=== PATIENT | female | born 1990 | race Caucasian/White ===

== ENCOUNTER 2019-01-01 04:00 | Inpatient (IN) ==
[2019-01-01] MEDS ORDERED: Famotidine 20 MG/2 ML VIAL IVP PRN (04:43)
[2019-01-01] MEDS ORDERED: Naloxone 0.4 MG/ML INJ IVP PRN (04:43)
[2019-01-01] MEDS ORDERED: Metoclopramide 10 MG/2 ML VIAL IVP PRN (04:43)
[2019-01-01] MEDS ORDERED: Ringers Solution, Lactated 1,000 ML IVC SCH (04:45)
[2019-01-01] MEDS ORDERED: *HR* Nalbuphine 10 MG/ML AMPUL IV PRN (04:52)
[2019-01-01 05:11] LABS: Basophils # 0.1 K/mcL (0.0-0.2); Basophils % 0.4 %; Eosinophils # 0.1 K/mcL (0.0-0.6); Hematocrit 37.7 % (35.3-44.9); Hemoglobin 13.5 g/dL (11.5-15.4); Immature Granulocytes % 0.9 % (0-4); Lymphocytes % 14.4 %; Mean Corpuscular HGB Conc 35.8 g/dL (31.6-35.5); Mean Corpuscular Hemoglobin 33.8 pg (28.0-33.3); Mean Corpuscular Volume 94.3 fL (83.0-100.0); Mean Platelet Volume 11.7 fL (9.4-12.4); Monocytes # 1.1 K/mcL (0.0-1.3); Monocytes % 8.1 %; Neutrophils # 10.5 K/mcL (1.6-8.9); Platelet Count 170 K/mcL (140-400); Red Cell Distribution Width 12.1 % (11.5-14.5); Segmented Neutrophils % 75.2 %; White Blood Count 13.9 K/mcL (4.3-11.1)
[2019-01-01 05:20] LABS: Amphetamine Screen,Urine Negative ng/mL (Cutoff=1000); Barbiturate Screen,Urine Negative ng/mL (Cutoff=200); Benzodiazepines Screen,Urine Negative ng/mL (Cutoff=200); Cannabinoid Screen,Urine Negative ng/mL (Cutoff = 50); Cocaine Screen,Urine Negative ng/mL (Cutoff= 300); Opiate Screen,Urine Negative ng/mL (Cutoff=300); Phencyclidine Screen,Urine Negative ng/mL (Cutoff=25)
[2019-01-01] MEDS ORDERED: miSOPROStoL 25 MCG TABLET VG SCH (06:00)
[2019-01-01] MEDS ORDERED: Ringers Solution, Lactated 1,000 ML ONE (10:24)
[2019-01-01] MEDS ORDERED: Oxytocin 20 units/ LR 1000 mL 20 UNIT/1,000 ML BAG IVC SCH ×2 (11:00→16:02)
[2019-01-01] MEDS ORDERED: Lidocaine/EPI 1:200k 1% PF 10 ML VIAL ONE (12:12)
[2019-01-01] MEDS ORDERED: Benzocaine/Menthol 56 GM AEROSOL SPRAY TP PRN (16:02)
[2019-01-01] MEDS ORDERED: Lanolin 28 GM TUBE TP PRN (16:02)
[2019-01-01] MEDS ORDERED: Acetaminophen 325 MG TABLET PO PRN (16:02)
[2019-01-01] MEDS ORDERED: Measles/Mumps/Rubella Vacc 0.5 ML VIAL SQ PRN (16:02)
[2019-01-01] MEDS: Ibuprofen 600 MG TABLET PO PRN (16:58)
[2019-01-02] MEDS: Ibuprofen 600 MG TABLET PO PRN ×2 (03:06→08:44)
[2019-01-02] MEDS ORDERED: Prenatal Vit/FA 1 EACH TABLET PO SCH (09:00)
[2019-01-02 09:54] VITALS: BP 123/90
== END 2019-01-02 15:06 | disposition home or self-care (01) | DRG 560 ==
LOC: 1NENULAB 04:00 → 1NENUOBS 15:53
PROVIDERS: ADMIT Obstetrics & Gynecology; ATTEND Obstetrics & Gynecology